=== PATIENT | female | born 1990 | race Caucasian/White ===

== ENCOUNTER 2017-05-09 08:00 | Emergency (ER) | payer OTHER ==
[2017-05-09 08:15] VITALS: BP 133/94; PULSE 81; TEMP 98.4; BMI 22.7
[2017-05-09 09:29] LABS: URINE MARIJUANA THC NEGATIVE ng/ml (CUTOFF=50)
[2017-05-09 09:35] LABS: BASOPHIL 1.2 % (0-2.0); EOSINOPHIL 2.3 % (0-4.5); MCHC 34.5 g/dl (32.0-36.0); MEAN CELL VOLUME 95.5 fl (80-96); MEAN PLT VOLUME 8.4 fl (7.5-11.1); NEUTROPHILS 52.7 % (42.8-82.8); PLATELET COUNT 169 K/MM3 (134-434); RDW 11.6 % (11.6-15.6); WHITE BLOOD COUNT 5.4 K/mm3 (4.0-10.8)
[2017-05-09 09:56] LABS: ALBUMIN 4.4 g/dl (3.5-5.0); ALK PHOS 55 U/L (32-92); ANION GAP 10 (8-16); BILIRUBIN,TOTAL 1.5 mg/dl (0.2-1.0); CALCIUM 9.4 mg/dl (8.4-10.2); CO2 24 mmol/L (22-28); CREATININE 0.6 mg/dl (0.6-1.3); GLUCOSE,RANDOM 91 mg/dl (74-106); SGOT/AST 38 U/L (10-42); SGPT/ALT 31 U/L (10-40); TOT PROT 7.1 g/dl (6.4-8.3)
--- NOTE | 2017-05-09 10:11 | PDOC ---
History of Present Illness - General Chief Complaint: Tremors Stated Complaint: SHAKING S/P TAKING MEDICINE A FEW HOURS AGO Time Seen by Provider: 05/09/17 09:31 History Source: Patient Exam Limitations: No Limitations - History of Present Illness Initial Comments: 05/09/17 10:05 26 yo F with h/o anxiety and depression here with c/o feeling shaky, and dizzniness with palpitations and chest tightness after taking mucinex DM. pt states has been on prozac for several month. no h/o serotonin syndrome. denies other medication use or coingestant. stats took two doses of mucinex one at 1 am , and another dose this am. has been taking prozac as prescribed. no seizure like activity. has had cough. cold like sxs for few days. nonproductive. no f/c no n/v. 05/09/17 10:07 also states has h/o arhythmia unsure of what type. Past History - Past Medical History Allergies/Adverse Reactions: Allergies Allergy/AdvReac Type Severity Reaction Status Date / Time No Known Allergies Allergy Verified 05/09/17 08:08 Home Medications: Ambulatory Orders Fluoxetine HCl [Prozac] 60 mg PO DAILY 05/09/17 Cardiac Disorders: Yes (ARRYTHMIAS) Kidney Stones: Yes Psychiatric Problems: Yes (anxiety,depression) - Immunization History Td Vaccination: No - Suicide/Smoking/Psychosocial Hx Smoking Status: No Smoking History: Never smoked Have you smoked in the past 12 months: No Number of Cigarettes Smoked Daily: 0 Information on smoking cessation initiated: No Hx Alcohol Use: Yes (socially) Drug/Substance Use Hx: No Substance Use Type: None Review of Systems - Review of Systems Constitutional: No: Chills, Diaphoresis HEENTM: No: Blurred Vision Respiratory: Yes: Cough, Shortness of Breath. No: Orthopnea, Wheezing Cardiac (ROS): Yes: Chest Pain, Palpitations, Chest Tightness ABD/GI: No: Abdominal Distended Musculoskeletal: No: Back Pain, Gout, Muscle Weakness Integumentary: No: Bruising Neurological: Yes: Tremors. No: Headache, Numbness Psychiatric: Yes: Anxiety, Depression. No: Frequent Crying, Stressors, Sleep Pattern Change, Emotional Problems, Mood Swings, Change in Appetite All Other Systems: Reviewed and Negative *Physical Exam - Vital Signs Last Vital Signs Temp Pulse Resp BP Pulse Ox 98.4 F 81 18 133/94 100 05/09/17 08:02 05/09/17 08:02 05/09/17 08:02 05/09/17 08:02 05/09/17 08:02 - Physical Exam General Appearance: Yes: Nourished, Appropriately Dressed. No: Apparent Distress HEENT: positive: Normal ENT Inspection Neck: positive: Trachea midline Respiratory/Chest: positive: Lungs Clear, Normal Breath Sounds Cardiovascular: positive: Regular Rhythm, Regular Rate, S1, S2. negative: Edema Gastrointestinal/Abdominal: positive: Normal Bowel Sounds, Tender. negative: Flat Rectal Exam: negative: heme negative stool Musculoskeletal: positive: Normal Inspection, CVA Tenderness Neurologic: positive: sap [place] consultant II-XII NML intact, Fully Oriented, Alert, Normal Response, Other (no clonus ) Heart Score/ECG Review #1 General ECG Interpretation: Sinus Rhythm, Normal Rate (62 bpm), Normal Intervals , No acute ischemic changes Compared to previous ECG there are: No significant change ED Treatment Course - LABORATORY CBC & Chemistry Diagram: 05/09/17 08:44 05/09/17 08:44 - ADDITIONAL ORDERS Additional order review: Laboratory Results 05/09/17 05/09/17 05/09/17 08:44 08:21 08:21 Sodium 135 L Potassium 3.5 Chloride 101 Carbon Dioxide 24 Anion Gap 10 BUN 14 Creatinine 0.6 D Creat Clearance w eGFR > 60 Random Glucose 91 Calcium 9.4 Total Bilirubin 1.5 H D AST 38 ALT 31 D Alkaline Phosphatase 55 D Total Protein 7.1 Albumin 4.4 Urine HCG, Qual Negative Opiates Screen Negative Methadone Screen Negative Barbiturate Screen Negative Phencyclidine Screen Negative Ur Amphetamines Screen Negative MDMA (Ecstasy) Screen Negative Benzodiazepines Screen Negative Cocaine Screen Negative U Marijuana (THC) Screen Negative 05/09/17 08:44 RBC 4.14 MCV 95.5 MCHC 34.5 RDW 11.6 MPV 8.4 Neutrophils % 52.7 Lymphocytes % 37.3 Monocytes % 6.5 Eosinophils % 2.3 Basophils % 1.2 - RADIOLOGY Radiology Studies Ordered: Category Date Time Status CHEST PA & LAT [RAD] Stat Radiology 05/09/17 08:41 Completed Medical Decision Making - Medical Decision Making 05/09/17 10:10 differential : dehydration, adverse effect from DM dextromethorphan component of mucines. no current signs or sxs of significant serotonin syndrome ( normotensive. normal heart rate. no clonus, no hyperreflexia. ) recommend discontinuation of mucinex DM, labs r/o electrolyt abnormality, ekg and tox screen. given oral hydration. cxr evaluate for possible infection . 05/09/17 10:25 labs unremarkable. ekg normal. cxr negative for acute changes. will dc home. pt feeling better after eating. and rest. *DC/Admit/Observation/Transfer Diagnosis at time of Disposition: Adverse drug experience - Discharge Dispostion Disposition: HOME Condition at time of disposition: Improved Admit: No - Patient Instructions Printed Discharge Instructions: DI for Palpitations, SSRIs (Alternative Therapy ) Additional Instructions: you should avoid taking mucinex DM or any drugs with the "D" component which usually indicate cough medication or decongestant as these can cause feeling of palpitations. return for any shaking or siezure like activity or any concerns. you should also follow up with your regular doctor to discuss your prozac medication.
--- NOTE | 2017-05-09 13:40 | EKG ---
Test Reason : Blood Pressure : / mmHG Vent. Rate : 062 BPM Atrial Rate : 062 BPM P-R Int : 178 ms QRS Dur : 088 ms QT Int : 462 ms P-R-T Axes : -29 067 050 degrees QTc Int : 468 ms NORMAL SINUS RHYTHM NORMAL ECG NO PREVIOUS ECGS AVAILABLE Confirmed by PABLO OCHOA MD ([id number] on 05/09/2017 1:40:05 PM Referred By: ESTER STUART Confirmed By:PABLO OCHOA MD
== END 2017-05-09 10:41 | disposition home or self-care (01) ==
LOC: FER 08:00
DX: R00.2 Palpitations (principal); T48.4X5A Adverse effect of expectorants, initial encounter; Y92.9 Unspecified place or not applicable; F41.8 Other specified anxiety disorders; Z87.442 Personal history of urinary calculi
CPT/HCPCS: 36415; 71020-TC; 80053; 80307; 84703; 85025; 93005; 99282-25

== ENCOUNTER 2019-01-12 08:52 | Emergency (ER) | payer OTHER ==
[2019-01-12] MEDS ORDERED: SODIUM CHLORIDE 0.9% 1000 ML INFUS.BAG IV ONE (09:03)
[2019-01-12 09:05] VITALS: TEMP 98.1; BMI 24.3
--- NOTE | 2019-01-12 09:14 | PDOC ---
History of Present Illness - General Chief Complaint: Syncope/Near Syncope Stated Complaint: PALPITATIONS,SYNCOPE Time Seen by Provider: 01/12/19 09:02 History Source: Patient Exam Limitations: No Limitations - History of Present Illness Initial Comments: 01/12/19 09:08 28F with a PMH of anxiety, anorexia, recently diagnosed with HTN and HLD, who presents to the ER after having a syncopal episode. The patient states that she woke up out of sleep with L parasternal, inferior, CP, nonradiating, not associated with SOB, but is associated with palpitations and lightheadedness. She states that she called her father and told him. When he tried to call her back, she was not picking up because she had syncopized and he called EMS. She states that she's had palpitations in the past but it has not felt like this before. She denies fever, chills, abdominal pain. Pt states that she is unsure if she is or not. Pt also endorses heavier alcohol use, up to 10 drinks /day for the last month. Past History - Past Medical History Allergies/Adverse Reactions: Allergies Allergy/AdvReac Type Severity Reaction Status Date / Time No Known Allergies Allergy Verified 01/12/19 09:09 Home Medications: Ambulatory Orders Fluoxetine HCl [Prozac] 60 mg PO DAILY 05/09/17 Cardiac Disorders: Yes (ARRYTHMIAS) COPD: No HTN: Yes Kidney Stones: Yes Psychiatric Problems: Yes (anxiety,depression, etoh abuse) - Immunization History Td Vaccination: No - Suicide/Smoking/Psychosocial Hx Smoking Status: No Smoking History: Never smoked Have you smoked in the past 12 months: No Number of Cigarettes Smoked Daily: 0 Information on smoking cessation initiated: No Hx Alcohol Use: No Drug/Substance Use Hx: No Substance Use Type: None Review of Systems - Review of Systems Able to Perform ROS?: Yes Comments:: 01/12/19 09:15 GENERAL/CONSTITUTIONAL: No fever or chills. No weakness. HEAD, EYES, EARS, NOSE AND THROAT: No change in vision. No ear pain or discharge. No sore throat. CARDIOVASCULAR: + for chest pain, palpitations, or lightheadedness. RESPIRATORY: No cough, wheezing, shortness of breath, or hemoptysis. GASTROINTESTINAL: + for nausea. No abdominal pain, vomiting, diarrhea, or constipation. GENITOURINARY: No dysuria, frequency, hematuria, or change in urination. MUSCULOSKELETAL: No joint or muscle swelling or pain. No neck or back pain. SKIN: No rash or lesions. NEUROLOGIC: No headache, numbness, tingling, focal weakness, loss of consciousness, or change in strength/sensation. Is the patient limited Nauruan proficient: No *Physical Exam - Vital Signs Last Vital Signs Temp Pulse Resp BP Pulse Ox 98.1 F 72 16 144/104 H 100 01/12/19 08:52 01/12/19 08:52 01/12/19 08:52 01/12/19 08:52 01/12/19 08:52 - Physical Exam Comments: 01/12/19 09:15 GENERAL: Well developed, well nourished. Awake and alert. No acute distress. HEENT: Normocephalic, atraumatic. Hearing grossly normal. Moist mucous membranes. PERRLA, EOMI. No conjunctival pallor. Sclera are non-icteric. NECK: Supple. Full ROM. No JVD. CARDIOVASCULAR: Regular rate and rhythm. No murmurs, rubs, or gallops. PULMONARY: No evidence of respiratory distress. Lungs clear to auscultation bilaterally. No wheezing, rales or rhonchi. ABDOMINAL: Soft. Non-tender. Non-distended. No rebound or guarding. GENITOURINARY: No CVA tenderness bilaterally. MUSCULOSKELETAL: Normal range of motion at all joints. No bony deformities or tenderness. EXTREMITIES: No cyanosis. No clubbing. No edema. No calf tenderness or swelling. SKIN: Warm and dry. Normal capillary refill. No rashes. No jaundice. NEUROLOGICAL: Alert, awake, appropriate. Cranial nerves 2-12 grossly intact. Normal speech. Gait is normal without ataxia. PSYCHIATRIC: Cooperative. Good eye contact. Appropriate mood and affect. ED Treatment Course - LABORATORY CBC & Chemistry Diagram: 01/12/19 08:33 01/12/19 08:33 - RADIOLOGY Radiology Studies Ordered: Category Date Time Status CHEST PA & LAT [RAD] Stat Radiology 01/12/19 09:03 Ordered Medical Decision Making - Medical Decision Making 01/12/19 09:17 28F with a PMH of anxiety, anorexia, recently dx w/ HTN and HLD, who presents to the ER with palpitations and syncope. PE and vitals WNL. Pt states she's had a workup for an arrhythmia w/ Dr. Steele "a few years" ago and all of the testing was negative. Will order labs and imaging. Pt is noted to be mildly hypertensive at 140/105 but comfortable appearing overall. Pt denies long car rides/plane trips, recent surgery, smoking/OCP use, hx of DVT/PE, and swelling of lower extremities. PERC negative. 01/12/19 11:36 Dimer negative. Labs WNL except for transaminitis consistent with alcoholic hepatitis. Pt advised to stop drinking and f/u with PCP. *DC/Admit/Observation/Transfer Diagnosis at time of Disposition: Chest pain, atypical - Discharge Dispostion Disposition: HOME Condition at time of disposition: Stable Decision to Admit order: No - Referrals - Patient Instructions Printed Discharge Instructions: DI for Atypical Chest Pain, DI for Syncope in Adults (Fainting), Alcohol Use Disorder Additional Instructions: Your ER visit is not complete until your follow up with your primary care physician. Please follow up with your primary care physician in 1-2 days. Please follow up with your primary care doctor regarding your elevated liver enzymes. Please return to the ER if you have any signs or symptoms of chest pain, shortness of breath, uncontrollable fever, chills, nausea, vomiting, numbness, tingling, or weakness in any part of your body, changes in vision, or slurred speech. Please take your medications as prescribed. Please return to the ER if symptoms persist, worsen, or new symptoms arise. - Post Discharge Activity
[2019-01-12 09:51] LABS: BASO % 0.6 % (0-2.0); EOS % 1.9 % (0-4.5); HEMATOCRIT 41.1 % (32.4-45.2); HEMOGLOBIN 14.5 GM/dL (10.7-15.3); MCH 34.8 pg (25.7-33.7); MCHC 35.2 g/dl (32.0-36.0); MEAN CELL VOLUME 98.8 fl (80-96); MEAN PLT VOLUME 7.4 fl (7.5-11.1); MONO % 8.6 % (3.8-10.2); NEUT % 57.9 % (42.8-82.8); PLATELET COUNT 124 K/MM3 (134-434); RBC 4.16 M/mm3 (3.60-5.2); RDW 13.1 % (11.6-15.6); WHITE BLOOD COUNT 5.3 K/mm3 (4.0-10.0)
[2019-01-12 09:56] LABS: INR 0.95 (0.83-1.09); PROTHROMBIN TIME (PATIENT) 11.2 SEC (9.7-13.0)
[2019-01-12 10:19] LABS: ALBUMIN 3.8 g/dl (3.4-5.0); ALK PHOS 82 U/L (45-117); ANION GAP 12 MMOL/L (8-16); BILIRUBIN,TOTAL 1.5 mg/dL (0.2-1); BLOOD UREA NITROGEN 7.6 mg/dL (7-18); CHLORIDE 104 mmol/L (98-107); CO2 23 mmol/L (21-32); CREATININE 0.7 mg/dL (0.55-1.3); GLUCOSE,RANDOM 87 mg/dL (74-106); LIPASE 163 U/L (73-393); POTASSIUM 3.4 mmol/L (3.5-5.1); SGOT/AST 156 U/L (15-37); SGPT/ALT 122 U/L (13-61); SODIUM 139 mmol/L (136-145)
--- NOTE | 2019-01-12 11:35 | PDOC ---
Documentation entered by Ashly Curiel SCRIBE, acting as scribe for Tammi Lantigua MD. Tammi Lantigua MD: This documentation has been prepared by the Veena jimenez Xhesika, SCRIBE, under my direction and personally reviewed by me in its entirety. I confirm that the documentation accurately reflects all work, treatment, procedures, and medical decision making performed by me. Attending Attestation - Resident Resident Name: Delfino Villasenor - ED Attending Attestation I have performed the following: I have examined & evaluated the patient, The case was reviewed & discussed with the resident, I agree w/resident's findings & plan, Exceptions are as noted - HPI HPI: 01/12/19 09:20 The patient is a 28 year old female, with a significant PMH of HTN, HLD, anxiety , depression and anorexia who presents to the emergency department with syncopal episode. The patient states she woke up this morning with L sided chest pain, chest palpitations, lightheadedness and "felt like passing out." The patient states she tried calling her dad when she woke up, however, he did not answer his phone. 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 The patient states she has been drinking heavily the past month. The patient is unsure is she is . The patient shortness of breath, headache and dizziness. Denies fever, chills, nausea, vomit, diarrhea and constipation. Denies dysuria, frequency, urgency and hematuria. Allergies: NKDA Social history: etoh abuse - Physicial Exam PE: GENERAL: Awake, alert, and fully oriented, in no acute distress HEAD: No signs of trauma EYES: PERRLA, EOMI, sclera anicteric, conjunctiva clear ENT: Auricles normal inspection, hearing grossly normal, nares patent, oropharynx clear without exudates. Moist mucosa NECK: Normal ROM, supple, no lymphadenopathy, JVD, or masses LUNGS: Breath sounds equal, clear to auscultation bilaterally. No wheezes, and no crackles HEART: Regular rate and rhythm, normal S1 and S2, no murmurs, rubs or gallops ABDOMEN: Soft, nontender, normoactive bowel sounds. No guarding, no rebound. No masses EXTREMITIES: Normal range of motion, no edema. No clubbing or cyanosis. No cords, erythema, or tenderness NEUROLOGICAL: Cranial nerves II through XII grossly intact. Normal speech, normal gait. Motor and sensation intact SKIN: Warm, Dry, normal turgor, no rashes or lesions noted. - Medical Decision Making Pt with syncopal event preceded by cp. No recent travel, immobilization, OCPs. Low risk for PE, however, in light of the cp will obtain D-dimer. As she drinks pretty heavily at times and does not always eat properly, this is an alternative explanation for why it happened, as she says she did not eat or drink much yesterday but had alcohol. May have been dehydrated.
[2019-01-12 11:36] VITALS: BP 141/88; PULSE 74
--- NOTE | 2019-01-12 13:31 | EKG ---
Test Reason : Blood Pressure : / mmHG Vent. Rate : 075 BPM Atrial Rate : 075 BPM P-R Int : 162 ms QRS Dur : 086 ms QT Int : 416 ms P-R-T Axes : -16 053 052 degrees QTc Int : 464 ms NORMAL SINUS RHYTHM NORMAL ECG WHEN COMPARED WITH ECG OF 09-MAY-2017 08:36, NONSPECIFIC T WAVE ABNORMALITY NOW EVIDENT IN ANTERIOR LEADS Confirmed by LEVI URIBE MD ([id number]) on 01/12/2019 1:31:33 PM Referred By: Confirmed By:LEVI URIBE MD
== END 2019-01-12 12:07 | disposition home or self-care (01) ==
LOC: JER 08:52
PROC: 3E0337Z Introduction of Electrolytic and Water Balance Substance into Peripheral Vein, Percutaneous Approach (ICD-10-PCS; principal; 2019-01-12)
DX: R07.89 Other chest pain (principal); I10 Essential (primary) hypertension; E78.5 Hyperlipidemia, unspecified; R63.0 Anorexia
CPT/HCPCS: 36415; 71046-TC-FY; 80053; 82550; 82962; 83690; 84443; 84484; 84703; 85025; 85379; 85610; 93005; 93010; 99285-25; J7030

== ENCOUNTER 2019-09-09 23:25 | Emergency (ER) | payer OTHER ==
--- NOTE | 2019-09-09 23:29 | PDOC ---
History of Present Illness - General Chief Complaint: Pain, Acute Stated Complaint: LEFT FLANK PAIN, CRAMPING Time Seen by Provider: 09/09/19 23:27 History Source: Patient Exam Limitations: No Limitations - History of Present Illness Initial Comments: 09/09/19 23:28 HPI 29F with a PMH of anxiety, anorexia/bulimia in teenage years, esophagitis, GERD , UTIs, syncope who presents to the ED with suprapubic cramping pain since this morning, which has been progressive x several days, also a/w upper back pain. Lower abdominal pain is nonradiating, described as "crampy," no alleviating or exacerbating factors. Back pain is described as ache, worse in the left side, no alleviating or exacerbating factors pt states she has mild odor and vaginal discharge. baseline has metallic taste in mouth, had has h/o heartburn. has had EGD and colonoscopy done previously, last was several years ago, with + esophagitis (given history of bulimia) but no h.pylori or ulcers or bleeding. LMP 1.5 weeks ago, normal flow and time course. However, she did admit to taking Plan B approx 2 weeks ago after unprotected sex. pt admits to 4 partners in the last 6 months, does not consistently use control methods or condoms. last STD check was 2 days ago, which were normal. Denies fever, chills, chest pain, SOB, palpitation, headache, dizziness, weakness, N, V, D, constipation, bladder and bowel problems, focal weakness/ paresthesias, leg swelling/pain, rash. No sick contacts or travel. No new changes in medications. No suspicious food intake. No trauma or falls. 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 Allergies: None Past Medical History/PSH: as above Social history: +ETOH use Meds: as documented in EMR Family history: noncontributory Review of systems Constitutional: no fevers or chills. No weakness HEENT: no headache or dizziness. No congestion. CVS: no cp or syncope. Resp: no sob. No cough. Gastrointestinal: +abdominal pain, No nausea, vomiting, diarrhea. Genitourinary: no urinary sx, hematuria. MUSCULOSKELETAL: No joint pain and swelling. No neck pain. +back pain SKIN: no redness or skin changes, no discharge, no rash. No wounds. Hematologic: no easy bruising/bleeding. NEUROLOGIC: No headache, dizziness, LOC or altered mental status. No weakness, numbness or tingling. Psych: +anxiety /depression Allergic/Immunologic: no allergies All other systems reviewed and negative, or as documented in HPI. Physical exam General: Well appearing, awake and alert, NAD. HEENT: NCAT, PERRL, EOMI, clear conjunctiva, anicteric, moist mucus membranes, clear oropharynx, no oral lesions.. Neck: neck supple, FROM, no masses or appreciable LAD. Resp: CTAB, normal and even respirations, no respiratory distress CVS: RRR, no murmurs, 2+ peripheral pulses throughout, no peripheral edema Abdomen: soft, NTND, no rebound or guarding. no CVAT. No tiwari's or mcburney's point tenderness. Back: nontender, normal inspection and ROM; left paravertebral TTP, no midline tenderness, FROM MSK: no edema, MONGE x4, ROM intact. No clubbing or cyanosis. normal bulk and tone. Extremities: no calf tenderness Neuro: alert, oriented appropriately; no focal neurologic deficits, gait stable , speech clear. Psych: Calm and cooperative Skin: warm and well perfused, cap refill <2 sec, normal color, no rash or skin discoloration. 09/10/19 22:24 Past History - Past Medical History Allergies/Adverse Reactions: Allergies Allergy/AdvReac Type Severity Reaction Status Date / Time No Known Allergies Allergy Verified 09/09/19 23:27 Home Medications: Ambulatory Orders Fluoxetine HCl [Prozac] 60 mg PO DAILY 05/09/17 Alprazolam [Xanax] 0.25 mg PO DAILY 09/09/19 Dextroamphetamine/Amphetamine [Adderall Xr 30 mg Capsule] 30 mg PO DAILY Cephalexin Monohydrate [Keflex -] 500 mg PO BID #10 capsule 09/10/19 Cardiac Disorders: Yes (ARRYTHMIAS) COPD: No HTN: Yes Kidney Stones: Yes Psychiatric Problems: Yes (anxiety,depression, etoh abuse) - Immunization History Td Vaccination: No - Psycho Social/Smoking Cessation Hx Smoking Status: No Smoking History: Never smoked Have you smoked in the past 12 months: No Number of Cigarettes Smoked Daily: 0 Hx Alcohol Use: No Drug/Substance Use Hx: No Substance Use Type: None Procedures - Bedside Ultrasound Remarks: 09/10/19 01:15 POCUS renal exam performed, indication includes abdominal/flank pain. views obtained: bilateral kidneys in short and long axis, bladder. findings: no evidence of hydronephrosis. Impression: no acute pathology, no hydronephrosis. ED Treatment Course - LABORATORY CBC & Chemistry Diagram: 09/10/19 00:20 09/10/19 00:20 Medical Decision Making - Medical Decision Making 09/10/19 00:05 Vital Signs Temp Pulse Resp BP Pulse Ox 97.9 F 110 H 16 157/103 H 97 09/09/19 23:31 09/09/19 23:31 09/09/19 23:31 09/09/19 23:31 09/09/19 23:31 VS reviewd, afebrile, +tachy but also in pain. hypertensive, likely related to pain, will recheck. ddx. UTI, pyelo, , dehydration, GERD, PUD, esophagitis, esophageal spasm, anemia, electrolyte/metabolic derangements, msk strain. 09/10/19 01:08 UA prelim with small RBCs <10 wbcs 2, few bacteria pt does have some UTI sx (dysuria, suprapubic tenderness/pain), pt amenable to f /u urine cultures, in mean time abx (keflex x 5 days) bedside renal sono with no hydro, normal bladder, no pelvic FF, no sig hydro noted bilaterally, particularly over the left renal collecting system, d/w pt, could be small stone or infectious shared decision making with patient in regards to further imaging in working up lower abdominal defer CT lona at this time, as there are alternative etiology. no RLQ or LLQ pain. no peritoneal findings. pt ok with holding off imaging. no lower pelvic pain, no localized pelvic pain/tenderness elicited mostly suprapubic. 09/10/19 01:30 upon reevaluation: pt and friend made aware she had near syncopal episode h/o syncope but had unremarkable workup and prior ED visit noted last December neck /node swelling x "months" - unremarkable exam here, airway intact, normal phonation and no e/o airway obstruction told to follow up with ENT with PMD followup. currently asymptomatic, no cp or sob, neuro intact. 09/10/19 01:38 repeat VS improved - no longer tachy, HR 80s. normotensive. pain controlled on reeval, abdomen nonperitoneal pt was given GI cocktail, with improvement of sx. d/w patient results, could be ditch rider related/hormonal given she is approx mid- cycle. analgesia regimen discussed. GI and PMD referral. as well as ditch rider, f/u urine cultures, start keflex given her UTI sx, despite neg prelim UA, as this could also be UTI. no systemic features, nontoxic appearing. doubt pyelo at this time, but considered, hence treating early prior to official cultures. Laboratory results are at baseline including her LFTs with AST greater than ALT similar to her prior results in December 2018. Correlating with transaminitis/ alcoholic hepatitis. In December 2018 she had episode of syncope with unremarkable work-up in the ED and has seen log grader in prior years. No syncope today. No history of DVT or PE, OCP use, surgery, prolonged immobilization. Patient was told to be cautious with her EtOH use and cut down with her drinking with her e/o hepatitis, stable and etoh related.. Pt to be discharged in stable condition. Patient made aware of clinical impression, treatment recommendations and disposition plan, return precautions discussed (including but not limited to new or persistent/worsening symptoms, pain, fevers, or signs of infection, chest pain, respiratory distress, inability to tolerate oral intake, dehydration, syncope, or neurologic changes) . Follow up with PMD and/or specialist as recommended, follow up information provided, take medications as instructed for duration of time. continue with supportive care, avoid triggers and precipitants. All questions answered to patient's satisfaction and expressed understanding and comfort with this. At the time of discharge, the patient is alert, clinically improved, tolerating po and verbalizes understanding of instructions, satisfied with the care received and felt comfortable with the plan. Patient does not suffer from an acute life- threatening medical condition at this time and is safe for outpatient follow- up. 09/10/19 01:40 09/10/19 01:42 09/10/19 01:49 09/10/19 22:31 Discharge - Discharge Information Problems reviewed: Yes Clinical Impression/Diagnosis: Transaminitis Abdominal pain Qualifiers: Abdominal location: generalized Qualified Code(s): R10.84 - Generalized abdominal pain Back pain Qualifiers: Back pain location: back pain in unspecified location Chronicity: acute Back pain laterality: unspecified Qualified Code(s): M54.9 - Dorsalgia, unspecified Condition: Stable Disposition: HOME - Admission No - Additional Discharge Information Prescriptions: Cephalexin Monohydrate [Keflex -] 500 mg PO BID #10 capsule - Follow up/Referral Referrals: [facility] [place] [Provider Group] [facility] [Provider Group] Oswaldo Evans DO [Staff Physician] - Marshall Kitchen MD [Staff Physician] - [facility] [Provider Group] - Patient Discharge Instructions Patient Printed Discharge Instructions: DI for Urinary Tract Infection (UTI), DI for Abdominal Pain-Adult, Liver Function Tests, DI for Flank Pain Additional Instructions: 1) Please follow-up with your primary care doctor in the next 1-2 days. Please call tomorrow for for any urgent issues. some specialists are provided for followup including gynecology and gastroenterology for your symptoms. 2) You were given a copy of the tests performed today. Please bring the results with you and review them with your primary care doctor. Your laboratory / imaging results were normal, including your bedside kidney ultrasound that did not reveal swelling of the filtering collecting system 3) If you have any worsening of symptoms or any other concerns please return to the ED immediately. Return if worsening symptoms including fevers, headache, vomiting, visual or hearing disturbances, abdominal pain, chest pain, shortness of breath, syncope, dehydration, inability to take things by mouth/vomiting, altered mental status, or worsening concerning symptoms. 4) Please continue taking your home medications as directed. your medications on discharge include Keflex two times a day x 5 days. . side effects may include upset stomach, abdominal pain, vomiting, or diarrhea. do not drink alcohol with your medications. you can take tylenol/and or ibuprofen (or aleve or advil - these are in class called NSAIDS) as needed for pain control Please take IBUPROFEN (aka MOTRIN, ADVIL, ALEVE) 400 mg and/or ACETAMINOPHEN ( aka Tylenol) 650-975 mg every 6 hours, as needed, for pain. Please do not take these medications if you have a bleeding disorder, stomach or GI ulcer problems or liver disease. Stay well hydrated and rest adequately. Make an appointment. If you cannot follow-up with your primary care doctor please return to the ED - Post Discharge Activity
[2019-09-09 23:34] VITALS: BMI 23.6
[2019-09-09 23:50] LABS: EPITHELIAL CELLS MODERATE /hpf
[2019-09-09] MEDS ORDERED: MAG HYDROX/AL HYDROX/SIMETH 30 ML UNIT-DOSE CUP PO ONE (23:50)
[2019-09-09] MEDS ORDERED: ACETAMINOPHEN 325 MG TABLET (FP) PO ONE (23:50)
[2019-09-09] MEDS ORDERED: SODIUM CHLORIDE 0.9% 500 ML INFUS.BAG IV ONE (23:51)
[2019-09-09] MEDS ORDERED: FAMOTIDINE 20 MG/50 ML IVPB 20 MG/50 ML MG IVPB ONE (23:51)
[2019-09-10] MEDS ORDERED: FAMOTIDINE 20 MG/50 ML IVPB 20 MG/50 ML MG IVPB ONE ×2 (00:24→00:25)
[2019-09-10] MEDS ORDERED: MAG HYDROX/AL HYDROX/SIMETH 30 ML UNIT-DOSE CUP ONE (00:24)
[2019-09-10] MEDS ORDERED: ACETAMINOPHEN 500 MG TABLET (FP) ONE (00:25)
[2019-09-10 01:01] LABS: BASO % 0.8 % (0-2.0); EOS % 1.4 % (0-4.5); HEMATOCRIT 41.6 % (32.4-45.2); HEMOGLOBIN 14.9 GM/dL (10.7-15.3); LYMPH % 25.7 % (8-40); MCHC 35.8 g/dl (32.0-36.0); MEAN CELL VOLUME 100.4 fl (80-96); MEAN PLT VOLUME 7.4 fl (7.5-11.1); MONO % 6.1 % (3.8-10.2); PLATELET COUNT 204 K/MM3 (134-434); RBC 4.14 M/mm3 (3.60-5.2); RDW 12.4 % (11.6-15.6); WHITE BLOOD COUNT 9.4 K/mm3 (4.0-10.0)
[2019-09-10 01:33] LABS: ALBUMIN 3.7 g/dl (3.4-5.0); BILIRUBIN,TOTAL 1.4 mg/dL (0.2-1); BLOOD UREA NITROGEN 9.3 mg/dL (7-18); CALCIUM 8.9 mg/dL (8.5-10.1); CREATININE 0.8 mg/dL (0.55-1.3); POTASSIUM 3.6 mmol/L (3.5-5.1); TOT PROT 7.2 g/dl (6.4-8.2)
[2019-09-10 01:38] VITALS: BP 136/94; PULSE 82; TEMP 98.1
== END 2019-09-10 01:56 | disposition home or self-care (01) ==
LOC: FER 23:25
PROC: 3E033GC Introduction of Other Therapeutic Substance into Peripheral Vein, Percutaneous Approach (ICD-10-PCS; principal; 2019-09-09)
DX: R74.0 Nonspecific elevation of levels of transaminase and lactic acid dehydrogenase [LDH] (principal); R10.84 Generalized abdominal pain; M54.9 Dorsalgia, unspecified; I49.9 Cardiac arrhythmia, unspecified; I10 Essential (primary) hypertension; F41.8 Other specified anxiety disorders; F10.10 Alcohol abuse, uncomplicated; N20.0 Calculus of kidney
CPT/HCPCS: 36415; 80053; 81003; 81015; 83690; 84703; 85025; 87086; 99284-25

== ENCOUNTER 2020-02-01 10:30 | Emergency (ER) | payer OTHER ==
[2020-02-01 10:55] VITALS: BP 143/97; PULSE 81; TEMP 98.1; BMI 24.3
--- NOTE | 2020-02-01 10:58 | PDOC ---
History of Present Illness - General Chief Complaint: Syncope/Near Syncope Stated Complaint: VASOVAGAL Time Seen by Provider: 02/01/20 10:36 History Source: Patient Exam Limitations: No Limitations - History of Present Illness Initial Comments: 29 yo F presents with syncopal event following two episodes of severe LLQ abd pain last night. She states that the pain woke her from sleep twice during the night. The second time the pain was 10/10 and severe. She noted vaginal spotting associated with the pain. She is currently mid-cycle. She states she is not cautious with control and there is a chance she might be . Took a urine test at home which was negative. She does not typically spot mid-cycle. +Diarrhea when she had her symptoms. Denies N/V, f/c. No recent illness, no known sick contacts. Past History - Medical History Allergies/Adverse Reactions: Allergies Allergy/AdvReac Type Severity Reaction Status Date / Time No Known Allergies Allergy Verified 02/01/20 10:31 Home Medications: Ambulatory Orders Fluoxetine HCl [Prozac] 60 mg PO DAILY 05/09/17 Alprazolam [Xanax] 0.25 mg PO DAILY 09/09/19 Dextroamphetamine/Amphetamine [Adderall Xr 30 mg Capsule] 30 mg PO DAILY 09/09/19 Cardiac Disorders: Yes (ARRYTHMIAS) COPD: No HTN: Yes Kidney Stones: Yes Psychiatric Problems: Yes (anxiety,depression, etoh abuse) - Immunization History Td Vaccination: No - Psycho-Social/Smoking History Smoking Status: No Smoking History: Never smoked Have you smoked in the past 12 months: No Number of Cigarettes Smoked Daily: 0 Review of Systems - Review of Systems Able to Perform ROS?: Yes Comments:: GENERAL/CONSTITUTIONAL: No fever or chills. No weakness. HEAD, EYES, EARS, NOSE AND THROAT: No change in vision. No ear pain or discharge. No sore throat. CARDIOVASCULAR: No chest pain or shortness of breath. RESPIRATORY: No cough, wheezing, or hemoptysis. GASTROINTESTINAL: No nausea, vomiting. +Diarrhea. No constipation. GENITOURINARY: No dysuria, frequency, or change in urination. MUSCULOSKELETAL: No joint or muscle swelling or pain. No neck or back pain. SKIN: No rash. NEUROLOGIC: No headache, vertigo, loss of consciousness, or change in strength/sensation. ENDOCRINE: No increased thirst. No abnormal weight change. HEMATOLOGIC/LYMPHATIC: No anemia, easy bleeding, or history of blood clots. ALLERGIC/IMMUNOLOGIC: No hives or skin allergy. *Physical Exam - Physical Exam GENERAL: Awake, alert, and fully oriented, in no acute distress. Well-appearing. HEAD: No signs of trauma EYES: PERRLA, EOMI, sclera anicteric, conjunctiva clear ENT: Auricles normal inspection, hearing grossly normal, nares patent, oropharynx clear without exudates. Moist mucosa NECK: Normal ROM, supple, no lymphadenopathy, JVD, or masses LUNGS: Breath sounds equal, clear to auscultation bilaterally. No wheezes, and no crackles HEART: Regular rate and rhythm, normal S1 and S2, no murmurs, rubs or gallops ABDOMEN: Soft, +mild LLQ tenderness, normoactive bowel sounds. No guarding, no rebound. No masses EXTREMITIES: Normal range of motion, no edema. No clubbing or cyanosis. No cords, erythema, or tenderness NEUROLOGICAL: Cranial nerves II through XII grossly intact. Normal speech, normal gait. Motor and sensation intact SKIN: Warm, dry, normal turgor, no rashes or lesions noted. Heart Score/ECG Review - ECG Impressions Comment:: EKG read 11:01- NSR 76 bpm, no acute ST/T changes ED Treatment Course - LABORATORY CBC & Chemistry Diagram: 02/01/20 11:10 02/01/20 11:10 Medical Decision Making - Medical Decision Making 02/01/20 10:43 Pt with lower abd pain associated with syncopal event. As she states it is possible she is and she is spotting, will check B-HCG. If not, will obtain ultrasound to r/o ruptured ovarian cyst vs torsion. Discharge - Discharge Information Problems reviewed: Yes Clinical Impression/Diagnosis: Abdominal pain Qualifiers: Abdominal location: left lower quadrant Qualified Code(s): R10.32 - Left lower quadrant pain Syncope Qualifiers: Syncope type: unspecified Qualified Code(s): R55 - Syncope and collapse Condition: Stable Disposition: HOME - Follow up/Referral - Patient Discharge Instructions - Post Discharge Activity
[2020-02-01 11:39] LABS: BASO % 0.8 % (0-2.0); EOS % 0.9 % (0-4.5); HEMOGLOBIN 13.5 GM/dl (10.7-15.3); LYMPH % 25.2 % (8-40); MCHC 35.6 g/dl (32.0-36.0); MEAN CELL VOLUME 100.9 fl (80-96); MEAN PLT VOLUME 7.1 fl (7.5-11.1); MONO % 7.4 % (3.8-10.2); NEUT % 65.7 % (42.8-82.8); PLATELET COUNT 183 K/MM3 (134-434); RBC 3.76 M/mm3 (3.60-5.2); RDW 11.8 % (11.6-15.6); WHITE BLOOD COUNT 6.7 K/mm3 (4.0-10.8)
[2020-02-01 11:44] LABS: ANION GAP 13 MMOL/L (8-16); CALCIUM 8.9 mg/dl (8.5-10); CHLORIDE 101 mmol/L (98-107); CO2 23 mmol/L (21-32); CREATININE 0.8 mg/dl (0.55-1.3); GLUCOSE,RANDOM 96 mg/dl (74-106); POTASSIUM 3.4 mmol/L (3.5-5.1); SODIUM 137 mmol/L (136-145)
[2020-02-01 16:19] LABS: EPITHELIAL CELLS MODERATE /hpf
[2020-02-01 16:20] LABS: URINE MUCUS 1+
--- NOTE | 2020-02-02 09:50 | EKG ---
Test Reason : Blood Pressure : / mmHG Vent. Rate : 076 BPM Atrial Rate : 076 BPM P-R Int : 160 ms QRS Dur : 084 ms QT Int : 412 ms P-R-T Axes : -15 048 036 degrees QTc Int : 463 ms NORMAL SINUS RHYTHM NORMAL ECG WHEN COMPARED WITH ECG OF 12-JAN-2019 09:06, NO SIGNIFICANT CHANGE WAS FOUND Confirmed by RIK LEYVA MD ([id number]) on 02/02/2020 9:50:00 AM Referred By: Confirmed By:RIK LEYVA MD
== END 2020-02-01 16:58 | disposition home or self-care (01) ==
LOC: FER 10:30
DX: R10.32 Left lower quadrant pain (principal); R55 Syncope and collapse
CPT/HCPCS: 36415; 76830-TC; 80048; 81003; 81015; 84702; 85025; 93005; 99285-25

== ENCOUNTER 2020-06-08 19:19 | Emergency (ER) | payer OTHER ==
[2020-06-08 19:36] VITALS: BP 144/102; PULSE 88; TEMP 97.9; BMI 22.8
== END 2020-06-08 19:59 | disposition home or self-care (01) ==
LOC: FER 19:19
DX: F41.9 Anxiety disorder, unspecified (principal)
CPT/HCPCS: 93005; 99283-25

== ENCOUNTER 2020-08-18 22:47 | Emergency (ER) | payer OTHER ==
[2020-08-18] MEDS ORDERED: SODIUM CHLORIDE 1,000 ML IV STA (23:14)
[2020-08-18] MEDS ORDERED: KETOROLAC TROMETHAMINE 30 MG/1 ML VIAL IVPUSH ONE (23:14)
[2020-08-18 23:21] VITALS: BP 150/101; PULSE 107
[2020-08-18 23:31] LABS: EPITHELIAL CELLS MODERATE /hpf
[2020-08-18] MEDS ORDERED: KETOROLAC TROMETHAMINE 30 MG/1 ML VIAL ONE (23:44)
[2020-08-19 00:07] VITALS: TEMP 99; BMI 23.5
[2020-08-19] MEDS ORDERED: LIDOCAINE 5% TOPICAL PATCH TP ONE (00:57)
[2020-08-19] MEDS ORDERED: LIDOCAINE 5% TOPICAL PATCH ONE (01:06)
[2020-08-19] MEDS ORDERED: LIDOCAINE PATCH REMOVAL MC SCH (22:00)
== END 2020-08-19 01:13 | disposition home or self-care (01) ==
LOC: FER 22:47
PROC: 3E0333Z Introduction of Anti-inflammatory into Peripheral Vein, Percutaneous Approach (ICD-10-PCS; principal; 2020-08-18)
PROC: 3E0337Z Introduction of Electrolytic and Water Balance Substance into Peripheral Vein, Percutaneous Approach (ICD-10-PCS; 2020-08-18)
DX: M54.5 Low back pain (principal)
CPT/HCPCS: 36415; 74176-TC; 81003; 81015; 81025; 84703; 87086; 87491; 87591; 99285-25